=== PATIENT | female | born 1995 | race Hispanic/Latino ===

== ENCOUNTER 2019-04-17 16:59 | Emergency (ER) | payer OTHER ==
[2019-04-17 17:30] VITALS: BP 107/68
[2019-04-17] MEDS ORDERED: HYDROcodone/ACETAMINOPHEN 5-325 MG TAB PO ONE (21:04)
[2019-04-17 21:12] LABS: Bilirubin,Urine NEG (Negative); Blood,Urine LG (Negative); Color,Urine Yellow (Yellow); Mucus,Urine FEW /HPF; Protein,Urine <15 mg/dL mg/dL (Negative); Urobilinogen,Urine < 2.0 mg/dL (<2.0)
[2019-04-17 21:13] LABS: RBC,Urine > 182.0 /HPF (0.0-6.0)
--- NOTE | 2019-04-17 21:17 | Emergency Department Report ---
ED Back Pain/Injury HPI - General Chief Complaint: Back Pain/Injury Stated Complaint: BACK PAIN Time Seen by Provider: 04/17/19 20:51 Source: patient Limitations: No Limitations - History of Present Illness Initial Comments: Ms. Fenton is a 23 y/o w/f with hx of low back pain. She is follow up by [facility] for same. She is with current menses. pt states 5/10 low back pain radiating to left lower leg x 3 days. She denies new fall, injury, or trauma. pt states pain is exacerbated by bending, twisting lifting toddler multiple times daily. She denies numbness, weakness , or paralysis. There is no loss or decrease in bowel or bladder function. MD Complaint: back pain Onset/Timin -: days(s) Similar Symptoms Previously: Yes Radiation: buttocks, left leg Severity: moderate Severity scale (0 -10): 4 Quality: aching Consistency: intermittent Improves With: other (rest) Worsens With: movement Context: while lifting, turning/twisting, bending Associated Symptoms: denies: numbness, difficulty urinating, incontinence, fever/chills - Related Data Allergies Allergy/AdvReac Type Severity Reaction Status Date / Time azithromycin [From Zithromax] Allergy Anaphylaxis Verified 04/17/19 17:08 [email or web address] Allergy Itching Verified 04/17/19 17:08 latex Allergy Hives Verified 04/17/19 17:07 Penicillins Allergy Hives Verified 04/17/19 17:07 metoclopramide [From Reglan] AdvReac Unknown Verified 04/17/19 17:08 ED Review of Systems ROS: Stated complaint: BACK PAIN Other details as noted in HPI Constitutional: denies: chills, fever Eyes: denies: eye pain, eye discharge, vision change ENT: denies: ear pain, throat pain Respiratory: denies: cough, shortness of breath, wheezing Cardiovascular: denies: chest pain, palpitations Endocrine: no symptoms reported Gastrointestinal: denies: abdominal pain, nausea, diarrhea Genitourinary: denies: urgency, dysuria, discharge Musculoskeletal: back pain, arthralgia, myalgia. denies: joint swelling Skin: denies: rash, lesions Neurological: denies: headache, weakness, numbness, paresthesias, confusion, abnormal gait, vertigo Psychiatric: denies: anxiety, depression Hematological/Lymphatic: denies: easy bleeding, easy bruising ED Past Medical Hx - Past Medical History Previous Medical History?: Yes Hx CVA: Yes Hx Seizures: Yes - Surgical History Past Surgical History?: Yes Additional Surgical History: C section. D&C ED Physical Exam - General Limitations: No Limitations General appearance: alert - Head Head exam: Present: atraumatic, normocephalic - Eye Eye exam: Present: normal appearance, PERRL, EOMI Pupils: Present: normal accommodation - ENT ENT exam: Present: mucous membranes moist - Neck Neck exam: Present: normal inspection - Respiratory Respiratory exam: Present: normal lung sounds bilaterally. Absent: wheezes - Cardiovascular Cardiovascular Exam: Present: regular rate, normal rhythm, normal heart sounds. Absent: systolic murmur, diastolic murmur, rubs, gallop - GI/Abdominal GI/Abdominal exam: Present: soft, normal bowel sounds. Absent: distended, tenderness, bruit, hernia - Rectal Rectal exam: Present: deferred - Extremities Exam Extremities exam: Present: normal inspection, full ROM. Absent: tenderness - Back Exam Back exam: Present: normal inspection, tenderness, paraspinal tenderness (no posterior vertebral point tenderness ). Absent: CVA tenderness (R), CVA tenderness (L), muscle spasm, vertebral tenderness - Expanded Back Exam Expanded Back exam: Absent: saddle anesthesia Back exam: Positive Straight Leg Raise: Left - Neurological Exam Neurological exam: Present: alert, oriented X3, CN II-XII intact, normal gait, reflexes normal. Absent: motor sensory deficit - Expanded Neurological Exam Expanded Patient oriented to: Present: person, place, time Speech: Present: fluid speech Motor strength exam: RUE: 5, LUE: 5, RLE: 5, LLE: 5 Best Eye Response ([place]): (4) open spontaneously Best Motor Response ([place]): (6) obeys commands Best Verbal Response ([place]): (5) oriented [place] Total: 15 - Psychiatric Psychiatric exam: Present: normal affect, normal mood - Skin Skin exam: Present: warm, dry, intact, normal color. Absent: rash ED Course Vital Signs 04/17/19 17:28 Temperature 97.6 F Pulse Rate 90 Respiratory 18 Rate Blood Pressure 107/68 O2 Sat by Pulse 98 Oximetry ED Medical Decision Making - Lab Data Labs 04/17/19 20:59 Urine Color Yellow Urine Turbidity Slightly-cloudy Urine pH 5.0 Ur Specific [place] 1.025 Urine Protein <15 mg/dl Urine Glucose (UA) Neg Urine Ketones Neg Urine Blood Lg Urine Nitrite Neg Urine Bilirubin Neg Urine Urobilinogen < 2.0 Ur Leukocyte Esterase Neg Urine WBC (Auto) 6.0 Urine RBC (Auto) > 182.0 U Epithel Cells (Auto) 6.0 Urine Mucus Few - Medical Decision Making pt denies new fall injury or trauma. pain is in usual location and intensity as usual flare. pain is rated at 3/10 and tolerable at this time pt has follow up with [facility] next week. She is currently a/o x 3, ambulatory with steady gait and nad. Plan dc to home in stable condition with rx for flexeril, Naproxen, analgesic balm, back exercises, follow up with orthopedics as sched uled. Critical care attestation.: If time is entered above; I have spent that time in minutes in the direct care of this critically ill patient, excluding procedure time. ED Disposition Clinical Impression: Low back strain Qualifiers: Encounter type: initial encounter Qualified Code(s): S39.012A - Strain of muscle, fascia and tendon of lower back, initial encounter Disposition: DC-01 TO HOME OR SELFCARE Is pt being admited?: No Does the pt Need Aspirin: No (Normal) Condition: Stable Additional Instructions: This is a low back strain ,use flexeril, Naproxen, and analgesic balm as prescribed, do back exercises and moist heat as directed, follow up with orthopedics as scheduled. Return to emergency if symptoms worsen. Referrals: DARIN BUSH MD [Primary Care Provider] - 3-5 Days Forms: Work/School Release Form(ED) Time of Disposition: 21:29
== END 2019-04-17 21:40 | disposition home or self-care (01) ==
LOC: ED 16:59
DX: S39.012A Strain of muscle, fascia and tendon of lower back, initial encounter (principal); M79.662 Pain in left lower leg; Z79.899 Other long term (current) drug therapy; Z91.040 Latex allergy status; Z88.0 Allergy status to penicillin; Z88.8 Allergy status to other drugs, medicaments and biological substances; Z98.890 Other specified postprocedural states; Z86.69 Personal history of other diseases of the nervous system and sense organs; Z86.73 Personal history of transient ischemic attack (TIA), and cerebral infarction without residual deficits; X58.XXXA Exposure to other specified factors, initial encounter; Y93.89 Activity, other specified; Y92.89 Other specified places as the place of occurrence of the external cause; Y99.8 Other external cause status
CPT/HCPCS: 81001; 99283